=== PATIENT | female | born 1980 | race Caucasian/White ===

== ENCOUNTER 2016-06-04 10:57 | Outpatient (CLI) | payer MEDICAID ==
[~2016-06-04] VITALS: Ht 154.9 cm; Wt 78.9 kg
[2016-06-04 11:22] VITALS: Ht 154.9 cm; Wt 78.9 kg
--- NOTE | 2016-06-04 11:55 | RADRPT ---
PROCEDURE: Biophysical profile CLINICAL INDICATION: No distress, gestational diabetes. TECHNIQUE: Color and strickland-scale ultrasound images of an intrauterine gestation were obtained. COMPARISON: None FINDINGS: A single live intrauterine gestation is identified in cephalic position with an estimated hear t rate of 148 beats per minute. The placenta is located posteriorly and is a grade of 2. The cervi x is obscured by head shadows. No evidence of abruption identified. FORTUNATO is 9.3 cm. Incidental not e is made of bilateral hydroceles in the scrotum. movement 2/2. tone 2/2. breathing movement 2/2. Qualitative AFV 2/2 Total biophysical profile 11/27 IMPRESSION: 11/27 biophysical profile. Note made of bilateral hydroceles in the scrotum. RPTAT: AA .Onesimo Parrish MD, Date Time Electronically viewed and signed by .Onesimo Parrish MD, on 06/04/2016 11:55 .P/
[2016-06-04 12:24] LABS: URINE BLOOD (Dip) POC Negative (NEGATIVE)
== END 2016-06-04 12:55 | disposition home or self-care (01) ==
LOC: OBT 10:57 → L-D 10:58 → OBT 12:55
PROVIDERS: ATTEND Obstetrics & Gynecology
DX: O24.419 Gestational diabetes mellitus in pregnancy, unspecified control (principal); Z3A.00 Weeks of gestation of pregnancy not specified
CPT/HCPCS: 76818; 81003; 82962; Z7500; G0463